=== PATIENT | female | born 1950 | race Caucasian/White ===

== ENCOUNTER → 2017-07-15 08:04 | Outpatient (POV) | payer MEDICARE, OTHER, SELFPAY | PROVIDERS: Visit Provider Dermatology | DX: Z00.00 Encounter for general adult medical examination without abnormal findings (principal) ==

== ENCOUNTER → 2017-09-01 13:53 | Outpatient (CLI) | payer MEDICARE, OTHER, SELFPAY ==
[2017-09-01 13:59] LABS: Microscopic, Urine URINE MICROSCOPIC (MICROSCOPIC)
[2017-09-01 14:13] LABS: Appearance,Urine CLEAR (Clear); Bilirubin,Urine Negative (Negative); Blood, Urine Negative (Negative); Color,Urine YELLOW (Yellow); Glucose,Urine (UA) Negative (Negative); Ketones,Urine Negative (Negative); Leukocyte Esterase,Urine Negative (Negative); Nitrate,Urine Negative (Negative); Protein,Urine Negative (Negative); Urobilinogen,Urine 0.2 EU/dl (0.2)
[2017-09-01 14:48] LABS: Bacteria,Urine Trace /lpf; Mucus,Urine Trace /lpf
== END ==
PROVIDERS: Visit Provider Family Medicine
DX: N39.0 Urinary tract infection, site not specified (principal)
CPT/HCPCS: 81001; 87086; 87088; 87186

== ENCOUNTER → 2021-03-25 10:18 | Outpatient (CLI) | payer MEDICARE, OTHER, SELFPAY ==
--- NOTE | 2021-03-25 10:27 | XR_ITS ---
FINAL REPORT CLINICAL HISTORY: RT medial KNEE PAIN FINDINGS: RIGHT KNEE 3 views of the right knee were obtained. There is no acute fracture or dislocation. There are mild and moderate degenerative changes which are greatest at the medial compartment. There is a small joint effusion. IMPRESSION: Degenerative changes. Small joint effusion. Reviewed, Interpreted and Dictated by Owen Stone III, MD Transcribed by Drea Moreno Authenticated by Owen Stone III, MD on 03/25/2021 11:15:21 AM [facility]
--- NOTE | 2021-03-25 10:27 | XR_ITS ---
FINAL REPORT CLINICAL HISTORY: LT medial KNEE PAIN FINDINGS: LEFT KNEE 3 views of the left knee were obtained. There is no acute fracture or dislocation. There are mild and moderate degenerative changes which are greatest at the medial compartment. There is a small joint effusion. IMPRESSION: Degenerative changes. Small joint effusion. Reviewed, Interpreted and Dictated by Owen Stone III, MD Transcribed by Drea Moreno Authenticated by Owen Stone III, MD on 03/25/2021 11:15:[address] [facility]
== END ==
PROVIDERS: PCP Family Medicine; Visit Provider Family Medicine
DX: M25.562 Pain in left knee (principal); M25.561 Pain in right knee
CPT/HCPCS: 73562

== ENCOUNTER 2021-04-04 15:37 | Emergency (ER) | payer MEDICARE, OTHER, SELFPAY ==
[2021-04-04 15:39] VITALS: BP 123/75; PULSE 99; RESP 16; TEMP 37.1; O2SAT 95; BMI 24.7
[2021-04-04 16:27] LABS: Microscopic, Urine URINE MICROSCOPIC (MICROSCOPIC)
[2021-04-04 16:28] LABS: Appearance,Urine TURBID (Clear); Blood, Urine 2+ (Negative); Color,Urine BROWN (Yellow); Glucose,Urine (UA) 1+ (Negative); Ketones,Urine 1+ (Negative); Leukocyte Esterase,Urine 2+ (Negative); Nitrate,Urine POSITIVE (Negative); PH,Urine 6.5 (5.0-8.5); Protein,Urine 3+ (Negative); Urobilinogen,Urine >=8.0 EU/dl (0.2)
[2021-04-04 16:38] LABS: Bacteria,Urine 4+ /lpf; Bilirubin,Urine Negative (Negative); RBC,Urine 20-50 #/hpf (0-3); WBC,Urine TNTC #/hpf (0-3)
--- NOTE | 2021-04-04 16:48 | HMH.EDGENADL ---
ED Disposition Clinical Impression: Urinary tract infection Qualifiers: Urinary tract infection type: acute cystitis Hematuria presence: without hematuria Qualified Code(s): N30.00 - Acute cystitis without hematuria Disposition: Home, Self-Care Condition on Discharge: Good Instructions: DI for Urinary Tract Infection (UTI) Prescriptions: Cefdinir [Omnicef 300mg Capsule] 300 mg PO BID #20 cap Transmission Status: Received by [id number] Referrals: Boni Vazquez MD [Primary Care Provider] - Time of Disposition: 17:14 - Critical Care Critical Care Time: No Attestation: On 04/04/21, the high probability of a clinically significant, sudden or life threatening deterioration of the following system(s) required my full and direct attention, intervention and personal management. The time I documented below is in addition to time spent performing reported procedures but includes the following listed in this critical care notation. Medical Decision Making - Medical Records Medical records reviewed: Yes: I reviewed the patient's medical records. - Joe Inquiry Pt receiving controlled substance: No Vital Signs: 04/04/21 15:39 Temperature 98.7 F Temperature Source Oral Pulse Rate [Right Radial] 99 H Respiratory Rate 16 Blood Pressure [Right Arm] 123/75 Blood Pressure Mean [Right Arm] 91 Blood Pressure Source [Right Arm] Automatic Cuff Blood Pressure Position [Right Arm] Sitting 02 Sat by Pulse Oximetry 95 Oxygen Delivery Method Room Air - Lab Data Lab results reviewed: Yes: I reviewed the patient's lab results. Lab Results 04/04/21 16:03: Urine Color Brown, Urine Appearance Turbid, Urine pH 6.5, Ur Specific [place] 1.020, Urine Protein 3+, Urine Glucose (UA) 1+, Urine Ketones 1+, Urine Blood 2+, Urine Nitrate Positive, Urine Bilirubin Negative, Urine Urobilinogen >=8.0, Ur Leukocyte Esterase 2+ A, Urine RBC 20-50, Urine WBC Tntc, Ur Squamous Epith Cells 3-5, Urine Bacteria 4+ Orders (Tests/Meds): ED MEDICATIONS Discontinued Medications Generic Name Dose Route Start Last Admin Trade Name Freq PRN Reason Stop Dose Admin Ceftriaxone Sodium 1 gm 04/04/21 17:05 Ceftriaxone 1gm Vial IM 04/04/21 17:06 ONCE ONE Lidocaine HCl 0 ml 04/04/21 17:05 Lidocaine 1% 5ml Pf Vial IM 04/04/21 17:06 ONCE ONE ORDERS Category Date Time Status Urine Culture Stat Micro 04/04/21 16:03 Received Medical Decision Narrative: 70-year-old female who presents to the emergency department with chief complaint of dysuria, urinary frequency, and urinary urgency. Patient has been diagnosed with urinary tract infection and has now failed her third oral antibiotic. Patient has not trialed a cephalosporin class of antibiotic, and does have a positive urinalysis again on evaluation today with 4+ bacteria. Patient does not have any signs or symptoms of pyelonephritis or systemic infection at this time. We will give a one-time dose of IM Rocephin and discharged the patient with an additional 10 days of cefdinir. Patient should follow-up with her PCP soon as possible. Patient voiced understanding and is amenable to this plan. she will be discharged in stable condition. General Adult HPI - General Chief complaint: Urogenital-Female Stated complaint: poss UTI Time Seen by Provider: 04/04/21 15:48 Mode of Arrival: Ambulatory Limitations: No Limitations Description of Symptoms (Recalled from ER Triage Doc. by RN): C/O persistent UTI despite antibiotic meds x10 days. C/O painful urination, frequency, and bladder pressure - History of Present Illness HPI narrative: 70-year-old female who presents to the emergency department with chief complaint of urinary tract symptoms. Patient has had a UTI for the last 10 days. She states that she has tried Macrobid, Bactrim, and Cipro. She is currently on the Cipro, but continues to have severe symptoms. She states she is urinating constantly, has [place]
[2021-04-04 17:30] VITALS: BP 124/71; PULSE 92; RESP 14; TEMP 37.1; O2SAT 96
== END 2021-04-04 17:30 | disposition home or self-care (01) ==
PROVIDERS: Emergency Provider Emergency Medicine; PCP Internal Medicine Adolescent Medicine
DX: N30.00 Acute cystitis without hematuria (principal); K21.9 Gastro-esophageal reflux disease without esophagitis; E78.5 Hyperlipidemia, unspecified; I10 Essential (primary) hypertension; E03.9 Hypothyroidism, unspecified; Z79.899 Other long term (current) drug therapy
CPT/HCPCS: 81001; 87086; 96372; 99282; J0696

== ENCOUNTER → 2021-04-24 08:24 | Outpatient (CLI) | payer MEDICARE, OTHER, SELFPAY ==
--- NOTE | 2021-04-24 08:28 | XR_ITS ---
FINAL REPORT CLINICAL HISTORY: LT knee pain COMPARISON: March 25, 2021 FINDINGS: 4 weight-bearing views of the left knee were obtained. There is no acute fracture or dislocation. There are mild and moderate degenerative changes. There is medial compartment joint space narrowing worse as compared to the non-weightbearing prior images. IMPRESSION: Mild and moderate degenerative change with joint space narrowing worse with weight-bearing. Reviewed, Interpreted and Dictated by Owen Stone III, MD Transcribed by Sai Pascal Authenticated by Owen Stone III, MD on 04/24/2021 10:22:15 AM [facility]
--- NOTE | 2021-04-24 08:28 | XR_ITS ---
FINAL REPORT CLINICAL HISTORY: RT knee pain COMPARISON: March 25, 2021 FINDINGS: 4 weight-bearing views of the right knee were obtained. There is no acute fracture or dislocation. There are mild and moderate degenerative changes. There is medial compartment joint space narrowing worse as compared to the non-weightbearing prior images. IMPRESSION: Mild and moderate degenerative changes with joint space narrowing worse with weight-bearing. Reviewed, Interpreted and Dictated by Owen Stone III, MD Transcribed by Sai Pascal Authenticated by Owen Stone III, MD on 04/24/2021 10:22:30 AM [facility]
== END ==
PROVIDERS: PCP Family Medicine; Visit Provider Orthopaedic Surgery
DX: M25.561 Pain in right knee (principal); M25.562 Pain in left knee
CPT/HCPCS: 73564

== ENCOUNTER 2021-04-25 11:18 | Outpatient (RCR) | payer MEDICARE, OTHER, SELFPAY | END 2021-04-25 12:00 | disposition home or self-care (01) | LOC: PT 11:18 | PROVIDERS: Visit Provider Orthopaedic Surgery | DX: M17.0 Bilateral primary osteoarthritis of knee (principal) | CPT/HCPCS: 97760 ==

== ENCOUNTER → 2021-08-19 07:50 | Outpatient (POV) | payer MEDICARE, OTHER, SELFPAY | PROVIDERS: Visit Provider Dermatology | DX: Z00.00 Encounter for general adult medical examination without abnormal findings (principal) ==

== ENCOUNTER → 2022-02-04 13:53 | Outpatient (CLI) | payer MEDICARE, OTHER, SELFPAY ==
[2022-02-04 14:43] LABS: Coronavirus 19, PCR Not Detected (NotDetected); Influenza A, PCR Not Detected (NotDetected); Influenza B, PCR Not Detected (NotDetected)
[2022-02-04 14:53] LABS: Basophils # 0.1 K/mm3 (0-0.2); Basophils % 0.4 % (0.1-2.0); Eosinophils # 0.1 K/mm3 (0.0-0.4); Eosinophils % 0.3 % (0.1-12.0); Hematocrit 39.4 % (37.0-47.0); Hemoglobin 13.1 g/dL (12.2-16.2); Lymphocytes % 10.4 % (10-50); Mean Corpuscular HGB Conc 33.2 g/dL (31.8-35.4); Mean Corpuscular Hemoglobin 28.4 pg (27.0-31.2); Mean Corpuscular Volume 85.6 fl (81-99); Mean Platelet Volume 7.5 fl (7.4-10.4); Monocytes # 1.2 K/mm3 (0.1-1.0); Monocytes % 6.1 % (1.7-9.3); Neutrophils % 82.8 % (37.0-80.0); Platelet Count 243 K/mm3 (142-424); Red Cell Distribution Width 13.2 % (11.5-17.5); White Blood Count 19.4 K/mm3 (4.8-10.8)
[2022-02-04 14:56] LABS: MANUAL DIFFERENTIAL MANUAL DIFFERENTIAL (MANUAL DIFF)
[2022-02-04 16:10] LABS: Lymphocytes % 18 % (10-50); Monocytes % 2 % (2-9); Neutrophils % 80 % (42-76); Total Cells Counted 100
[2022-02-04 16:11] LABS: Platelet Estimate Normal; RBC Morphology Normal
== END ==
PROVIDERS: PCP Family Medicine; Visit Provider Physician Assistant
DX: Z20.822 Contact with and (suspected) exposure to COVID-19 (principal)
CPT/HCPCS: 36415; 85007; 85025; C9803; U0003; U0005

== ENCOUNTER 2023-07-16 08:48 | Emergency (ER) | payer MEDICARE, OTHER, SELFPAY ==
[2023-07-16 08:50] VITALS: BP 148/80; PULSE 101; RESP 16; TEMP 36.7; O2SAT 99; BMI 23.6
--- NOTE | 2023-07-16 09:00 | XR_ITS ---
FINAL REPORT CLINICAL HISTORY: posterior knee pain FINDINGS: Left knee 2 views of the left knee were obtained. There is no acute fracture or dislocation. The joint spaces are intact. There is severe degenerative change of the medial compartment. A moderate-sized joint effusion is present. There are moderate degenerative changes of the patellofemoral joint. There is no soft tissue abnormality. IMPRESSION: Moderate sized joint effusion without acute bony abnormality. Reviewed, Interpreted and Dictated by Fernando Webb MD Transcribed by Diamond Caicedo Authenticated and [facility]
--- NOTE | 2023-07-16 09:01 | ED_ITS ---
Discharge Plan Disposition Patient Disposition: Home, Self-Care Condition: Good Prescriptions Prescriptions: New methocarbamol 500 mg tablet 500 mg PO Q8H Qty: 90 0RF No Action levothyroxine 150 mcg tablet PO 90 Days Qty: 90 esomeprazole magnesium 40 mg capsule,delayed release(DR/EC) PO 90 Days Qty: 90 aspirin [Adult Low Dose Aspirin] 81 mg tablet,delayed release (DR/EC) 81 mg PO ONCE estradiol [Estrace] 0.01 % (0.1 mg/gram) cream 1 appful vaginal .nightly Qty: 42.5 2RF Rx Instructions: Blueberry size amount nightly at bedtime for 14 days; then use twice a week at bedtime alprazolam 0.25 mg tablet 0.25 mg PO DAILY atenolol 25 mg tablet 25 mg PO DAILY Gemtesa 75 mg tablet 75 mg PO DAILY Qty: 30 2RF ciprofloxacin HCl 500 mg tablet 500 mg PO BID 10 Days Qty: 20 0RF Referrals Follow up/Referrals: Bo Hardwick MD [Primary Care Provider] - See instructions Activity Restrictions/Add. Instructions Additional Instructions/Restrictions: You were seen in the ED today due to likely hamstring injury. Please get plenty of rest and keep the leg elevated. You may use compression wraps for swelling. Follow-up with your orthopedist as scheduled. Return to the ED if symptoms worsen or if new concerning symptoms arise. Thank you. Clinical Impressions Clinical Impression: Acute knee pain Qualifiers: Laterality: left Qualified Code(s): M25.562 - Pain in left knee Instructions Patient Instructions: DI for Hamstring Strain Discharge ED Provider: Marco Antonio Lopez General Adult HPI General Chief complaint: PAIN Stated complaint: back of L leg pain ao Time Seen by Provider: 07/16/23 08:52 History of Present Illness HPI narrative: Patient is a 73-year-old female with history of osteoarthritis, HTN, GERD who presents due to leg pain. Patient's is present to help provide history. Patient reports over the past 2 days she has been lifting heavy tubs at home and feels she may have pulled a muscle in her left leg. She reports she has had pain in the posterior region of her left leg from the mid thigh down to the knee. States she is now using a walker to ambulate after this injury. Reports she has been taking Aleve and using Voltaren gel at home with no relief. Denies any history of similar pain. Related Data Home Medications Medication Instructions Recorded Confirmed aspirin 81 mg tablet,delayed 81 mg PO ONCE 08/28/17 06/08/22 release (Adult Low Dose Aspirin) esomeprazole magnesium 40 mg PO 90 days ##90 08/28/17 06/08/22 capsule,delayed release levothyroxine 150 mcg tablet PO 90 days ##90 08/28/17 06/08/22 alprazolam 0.25 mg tablet 0.25 mg PO DAILY 04/25/21 06/08/22 atenolol 25 mg tablet 25 mg PO DAILY 04/25/21 06/08/22 Previous Rx's Medication Instructions Recorded vibegron 75 mg tablet (Gemtesa) 75 mg PO DAILY #30 tabs 03/18/22 estradiol 0.01% (0.1 mg/gram) 1 appful vaginal .nightly #42.5 05/29/22 vaginal cream (Estrace) grams ciprofloxacin HCl 500 mg tablet 500 mg PO BID 10 days #20 tabs 06/03/22 methocarbamol 500 mg tablet 500 mg PO Q8H #90 tabs 07/16/23 Allergies Allergy/AdvReac Type Severity Reaction Status Date / Time sulfamethoxazole Allergy Hives Verified 07/16/23 09:04 [From Bactrim] trimethoprim [From Bactrim] Allergy Hives Verified 07/16/23 09:04 [facility] Disclaimer: The information contained in this section may have been updated after the patient was seen, as this information can be updated by other users. Medical History Atrophic vaginitis HBP (high blood pressure) Hypothyroidism Overactive bladder Social History Smoking Status: Never smoker alcohol intake: never current occupational status: retired Travel in the last 8 weeks: None ROS Obtained: Yes All systems reviewed & no additional complaints except as documented Physical Exam General General appearance: alert and in no apparent distress Head Head exam: atraumatic, normocephalic and normal inspection Eye Eye exam: Present normal appearance, PERRL and EOMI ENT ENT exam: Present normal exam, normal oropharynx, mucous membranes moist, TM's normal bilaterally and normal external ear exam Neck Neck exam: Present normal inspection, full ROM and trachea midline; Absent meningismus or lymphadenopathy Chest Chest inspection: Present normal inspection and symmetric chest wall rise; Absent tenderness Respiratory Respiratory exam: Present normal lung sounds bilaterally; Absent respiratory distress Cardiovascular Cardiovascular exam: Present regular rate and normal rhythm; Absent JVD Abdominal Exam Abdominal exam: Present soft and normal bowel sounds; Absent distention, tenderness or guarding Extremities Exam Extremities exam: Present normal inspection, full ROM, normal capillary refill and other (Edema of left knee. Tenderness to palpation of posterior knee. Distal pulses, movement and sensation intact.); Absent calf tenderness Back Exam Back exam: Present normal inspection; Absent tenderness Neurological Exam Neurological exam: Present alert and oriented X3 Psychiatric Psychiatric exam: Present normal affect and normal mood Skin Skin exam: Present warm, dry, intact and normal color Lymphatic Lymphatic Findings: no adenopathy Medical Decision Making Joe Inquiry Pt receiving controlled substance: No Vital Signs: 07/16/23 08:50 07/16/23 09:08 07/16/23 09:15 Temperature 98.1 F Temperature Source Oral Pulse Rate 94 H 95 H Pulse Rate [Left Radial] 101 H Respiratory Rate 16 Blood Pressure Blood Pressure [Right Arm] 148/80 H Blood Pressure Mean [Right Arm] 102 02 Sat by Pulse Oximetry 99 100 100 Oxygen Delivery Method Room Air 07/16/23 09:30 Temperature Temperature Source Pulse Rate 93 H Pulse Rate [Left Radial] Respiratory Rate Blood Pressure 94/67 L Blood Pressure [Right Arm] Blood Pressure Mean [Right Arm] 02 Sat by Pulse Oximetry 98 Oxygen Delivery Method Room Air Orders (Tests/Meds): ED MEDICATIONS Discontinued Medications Generic Name Dose Route Start Last Admin Trade Name Freq PRN Reason Stop Dose Admin Acetaminophen 500 mg 07/16/23 09:00 07/16/23 09:07 Acetaminophen 500mg Tab PO 07/16/23 09:01 500 mg ONCE ONE Administration Methocarbamol 500 mg 07/16/23 09:01 07/16/23 09:07 Methocarbamol 500mg Tablet PO 07/16/23 09:02 500 mg ONCE ONE Administration ORDERS Category Date Time Status Knee XR left 2 views [XR knee LT 2V] Stat Exams 07/16/23 09:00 Completed Medical Decision Narrative: In summary, patient is 73-year-old female with history of HTN, osteoarthritis, GERD, evaluated in the emergency department today due to left flank pain. On arrival, patient is hemodynamically stable. On examination, patient has tenderness to palpation of posterior left knee with edema. Differential diagnosis includes but is not limited to musculoskeletal strain, fracture, dislocation, arthritis. Patient given oral Tylenol, oral Robaxin. Workup initiated including x-ray left knee. Imaging independently interpreted by me and significant for joint effusion. On reevaluation, patient states she has improvement in symptoms. She would like to be discharged at this time. Given the distribution of her pain, she likely has a hamstring strain. Patient counseled on home care and given strict return precautions. Prescription for Robaxin provided. Patient states she will follow-up with her orthopedist as scheduled in 10 days. Additional history was provided by family. 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 I considered the utility of treatment with prescription for narcotics, but decided against this because risks outweigh benefits. Critical Care Critical Care Time Critical Care Time: No
[2023-07-16] MEDS: METHOCARBAMOL 500MG TABLET 500 MG PO (09:07)
[2023-07-16] MEDS: ACETAMINOPHEN 500MG TAB 500 MG PO (09:07)
[2023-07-16 09:08] VITALS: PULSE 94; O2SAT 100
[2023-07-16 09:15] VITALS: PULSE 95; O2SAT 100
[2023-07-16 09:30] VITALS: BP 94/67; PULSE 93; O2SAT 98
--- NOTE | 2023-07-16 10:37 | PC.NURSE ---
rounded on pt no needs at this time,call light in reach
[2023-07-16 10:45] VITALS: BP 128/72; PULSE 77; RESP 18; TEMP 36.6; O2SAT 97
== END 2023-07-16 10:45 | disposition home or self-care (01) ==
PROVIDERS: Emergency Provider Student in an Organized Health Care Education/Training Program; PCP Family Medicine
DX: M25.562 Pain in left knee (principal); M25.462 Effusion, left knee; M79.652 Pain in left thigh; X50.0XXA Overexertion from strenuous movement or load, initial encounter
CPT/HCPCS: 73560; 99283

== ENCOUNTER 2023-07-30 12:36 | Outpatient (CLI) | payer MEDICARE, OTHER, SELFPAY ==
--- NOTE | 2023-07-30 12:43 | CT_ITS ---
FINAL REPORT TECHNIQUE: After the administration of intravenous contrast, axial images through the chest were performed by computed tomography.This study was performed with techniques to keep radiation doses as low as reasonably achievable, (ALARA). Individualized dose reduction techniques using automated exposure control or adjustment of mA and/or kV according to the patient''s size were employed. CLINICAL HISTORY: SQUAMOUS CELL CARCINOMA OF FLOOR OF MOUTH FINDINGS: There is no axillary adenopathy. There is ectasia of the ascending aorta measuring 4.0 cm. Multiple small mediastinal nodes are identified without evidence of adenopathy. The heart size is normal. There is no pericardial or pleural effusion. Limited images of the upper abdomen are unremarkable. There is a 6 mm nodule in the posterior left upper lobe well seen on image 31. There is an anterior right middle lobe nodule measuring 4 mm well seen on image 44. There is a posterior right upper lobe nodule measuring 5 mm well seen on image 25. Calcified granuloma is seen in the right lung base. There is mild atelectasis or scar. IMPRESSION: Several noncalcified pulmonary nodules, may represent granulomas versus metastases. Recommend 3 to six-month follow-up. Reviewed, Interpreted and Dictated by Owen Stone III, MD Transcribed by Mag Javed Authenticated and [facility]
--- NOTE | 2023-07-30 12:44 | CT_ITS ---
FINAL REPORT TECHNIQUE: Thin section axial CT images were obtained through the neck after intravenous contrast administration. Coronal and sagittal reformats were also obtained. This study was performed with techniques to keep radiation doses as low as reasonably achievable (ALARA). Individualized dose reduction techniques using automated exposure control or adjustment of mA and/or kV according to the patient''s size were employed. CLINICAL HISTORY: SQUAMOUS CELL CARCINOMA OF FLOOR OF MOUTH FINDINGS: The nasopharynx is unremarkable. There are postoperative changes in the oropharynx and bilateral neck. No mass or nodule is identified. There is calcified plaque the carotid bifurcations. There is mild mucosal thickening of the maxillary sinuses. IMPRESSION: No evidence of neoplastic involvement. Reviewed, Interpreted and Dictated by Owen Stone III, MD Transcribed by Mag Javed Authenticated and [facility]
[2023-07-30] MEDS: SODIUM CHLORIDE 0.9% 10ML SYR (RAD ONLY) 10 ML IV (13:03)
[2023-07-30] MEDS: IOPAMIDOL-370 (76%);100ML BOTTLE 75 ML IV ×2 (13:03→13:04)
== END 2023-07-30 23:59 | disposition home or self-care (01) ==
LOC: RAD 12:36
PROVIDERS: PCP Family Medicine; Visit Provider Oral & Maxillofacial Surgery
DX: C04.9 Malignant neoplasm of floor of mouth, unspecified (principal)
CPT/HCPCS: 70491; 71260; Q9967